=== PATIENT | male | born 1955 | race Caucasian/White ===

== ENCOUNTER → 2017-04-10 | Outpatient (CLI) | payer OTHER ==
[~2017-04-10] MED LIST: GADOBUTROL 7.5 MMOL/7.5 ML VIAL IV ONE
--- NOTE | 2017-04-10 14:45 | RAD ---
MR angiography of the chest, abdomen, and pelvis 04/10/2017 Indication: Aortic dissection Comparison study: None Technique: Multiplanar multisequence MRI imaging of the chest, abdomen, and pelvis was obtained before and after the administration of 16 cc of gadolinium based contrast. Multiplanar, 3-D reconstructions of thoracic, abdominal, and pelvic vasculature were created on an independent workstation. 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 The false lumen, which is slightly larger, involves the right side of the aorta. The true lumen supplies the celiac artery and superior mesenteric artery. True lumen supplies both renal arteries. The ascending thoracic aorta appears to be normal in course and caliber. There is a bovine configuration of the aortic arch. Limited visualization of the arch vessels is otherwise unremarkable. 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 There is ectasia of the aorta at the level of the diaphragmatic hiatus measuring 4.2 cm in diameter. Mild dilatation extends into the superior abdominal aorta however the abdominal aorta tapers to a normal caliber just below the origin of the SMA and above the origin of the renal arteries. Infrarenal abdominal aorta appears to be grossly unremarkable. No gross abnormality is likely aortic bifurcation or iliac arteries is identified. No other acute abnormalities are seen involving nonvascular structures. 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 Consider CT surveillance, which could be performed without contrast to evaluate stability aortic diameter.
== END | disposition home or self-care (01) ==
LOC: MRI 09:09
PROVIDERS: ATTEND Internal Medicine
DX: I71.01 Dissection of thoracic aorta (principal)
CPT/HCPCS: 71555; 72198; 74185; A9585

== ENCOUNTER → 2018-03-11 | Outpatient (CLI) | payer BC, OTHER | END | disposition home or self-care (01) | LOC: MRI 08:25 | DX: S83.281A Other tear of lateral meniscus, current injury, right knee, initial encounter (principal); S83.241A Other tear of medial meniscus, current injury, right knee, initial encounter; M17.11 Unilateral primary osteoarthritis, right knee; M22.41 Chondromalacia patellae, right knee; M25.461 Effusion, right knee; R60.0 Localized edema; X58.XXXA Exposure to other specified factors, initial encounter; Y93.89 Activity, other specified; Y92.89 Other specified places as the place of occurrence of the external cause; Y99.8 Other external cause status | CPT/HCPCS: 73721 ==

== ENCOUNTER → 2018-04-04 | Day surgery (SDC) | payer BC, OTHER ==
[~2018-04-04] MED LIST changes: +DEXAMETHASONE SOD PHOS 20 MG/5 ML VIAL.; -GADOBUTROL 7.5 MMOL/7.5 ML VIAL IV ONE; +LIDOCAINE 2% PF Vial for OR 5 ML VIAL.; +MORPHINE SULFATE 2 MG/ML DISP.SYRIN. IV; +ONDANSETRON PF 4 MG/2 ML VIAL.; +ONDANSETRON PF 4 MG/2 ML VIAL. IV; +PROCHLORPERAZINE 10 MG/2 ML VIAL. IV; +PROPOFOL 20 ML IV; +SEVOFLURANE 31 TO 60 MINUTES. IH; +ceFAZolin 2GM PREMIX 2 GM/50 ML BAG IV; +fentaNYL PF VIAL 100 MCG/2 ML VIAL; +fentaNYL PF VIAL 100 MCG/2 ML VIAL IV
[2018-04-04] MEDS: IV RINGERS,LACTATED 1000ML 1,000 ML IV (08:47)
[2018-04-04 08:49] LABS: POC GLUCOSE 143 mg/dL (70-99)
[2018-04-04] MEDS: BUPIVACAINE-EPI 0.25%-1:200000 50 ML VIAL. (09:41)
[2018-04-04 10:04] LABS: POC GLUCOSE 149 mg/dL (70-99)
[2018-04-04] MEDS: HYDROcodone/APAP 7.5/325MG 1 TAB TABLET PO (11:19)
[2018-04-04] MEDS: LIDOCAINE 1% PF 2 ML VIAL. ID (11:20)
== END | disposition home or self-care (01) ==
LOC: SURG 08:10
DX: S83.231A Complex tear of medial meniscus, current injury, right knee, initial encounter (principal); M22.41 Chondromalacia patellae, right knee; X50.1XXA Overexertion from prolonged static or awkward postures, initial encounter; Y93.89 Activity, other specified; Y92.89 Other specified places as the place of occurrence of the external cause; Y99.8 Other external cause status; E11.9 Type 2 diabetes mellitus without complications; I10 Essential (primary) hypertension; E78.5 Hyperlipidemia, unspecified; M81.0 Age-related osteoporosis without current pathological fracture; Z86.14 Personal history of Methicillin resistant Staphylococcus aureus infection; Z85.828 Personal history of other malignant neoplasm of skin; Z90.49 Acquired absence of other specified parts of digestive tract; Z98.890 Other specified postprocedural states; Z83.3 Family history of diabetes mellitus; Z87.891 Personal history of nicotine dependence; Z79.899 Other long term (current) drug therapy; Z79.84 Long term (current) use of oral hypoglycemic drugs; Z91.041 Radiographic dye allergy status; Z88.8 Allergy status to other drugs, medicaments and biological substances; Z86.73 Personal history of transient ischemic attack (TIA), and cerebral infarction without residual deficits; E66.9 Obesity, unspecified; Z68.31 Body mass index [BMI] 31.0-31.9, adult; Z87.442 Personal history of urinary calculi; Z72.89 Other problems related to lifestyle
CPT/HCPCS: 29881; 82962; A7015; C1782; J0690; J1100; J2001; J2405; J2704; J3010